=== PATIENT | female | born 2000 | race Caucasian/White ===

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

== ENCOUNTER 2024-12-08 06:06 | Observation (INO) | payer OTHER ==
[2024-12-08] VITALS (17 sets, daily range): BP systolic 102–128; BP diastolic 62–110
[~2024-12-08] VITALS: Ht 167.6 cm; Wt 79.4 kg
[2024-12-08] MEDS ORDERED: Pantoprazole Sodium 40 MG Injection IV ONE (07:00)
[2024-12-08 07:23] LABS: BASOPHILS ABSOLUTE AUTO 0.05 K/mm3 (0.00-0.23); BASOPHILS PERCENT AUTO 1 % (0-2); EOSINOPHILS ABSOLUTE AUTO 0.18 K/mm3 (0.00-0.68); EOSINOPHILS PERCENT AUTO 2 % (0-6); Hematocrit 41.7 % (33.0-51.0); Hemoglobin 13.7 g/dL (11.5-16.0); IMMATURE GRAN ABSOLUTE AUTO 0.04 K/mm3 (0.00-0.10); IMMATURE GRAN PERCENT AUTO 1 % (0-1); LYMPHOCYTES ABSOLUTE AUTO 2.08 K/mm3 (0.84-5.20); LYMPHOCYTES PERCENT AUTO 28 % (21-46); MONOCYTES ABSOLUTE AUTO 0.36 K/mm3 (0.16-1.47); MONOCYTES PERCENT AUTO 5 % (4-13); Mean Corpuscular HGB Conc 32.9 g/dL (31.5-36.5); Mean Corpuscular Volume 90 fL (80-100); NEUTROPHILS ABSOLUTE AUTO 4.69 K/mm3 (1.96-9.15); NEUTROPHILS PERCENT AUTO 63 % (41-73); NRBC ABSOLUTE 0.00 K/mm3 (0.00-0.02); NRBC Auto 0.0 /100 WBC (0.0-0.2); RDW Coefficient Variation 13.2 % (11.7-14.2); RDW Standard Deviation 43.4 fL (35.1-46.3)
[2024-12-08 07:36] LABS: Alanine Aminotransfer (ALT/SGP 288.0 U/L (12-78); Albumin, Blood 3.5 g/dL (3.4-5.0); Albumin/Globulin Ratio 0.8 (0.8-1.8); Anion Gap 10.0 mmol/L (3-11); Aspartate Aminotrans (AST/SGOT 74.0 U/L (12-37); Bilirubin, Total 0.2 mg/dL (0.1-1.0); Blood Urea Nitrogen 7.0 mg/dL (8-24); CO2, Blood 23.0 mmol/L (21-32); Calcium, Blood 8.5 mg/dL (8.5-10.1); Chloride, Blood 109.0 mmol/L (98-108); Creatinine, Blood 0.64 mg/dL (0.40-1.00); Globulin, Blood 4.5 g/dL (2.2-4.0); Glucose, Blood 82.0 mg/dL (70-99); Magnesium, Blood 1.9 mg/dL (1.6-2.4); Potassium, Blood 3.7 mmol/L (3.5-5.5); Sodium, Blood 138.0 mmol/L (136-145); Total Protein, Blood 8.0 g/dL (6.4-8.2)
[2024-12-08 07:59] LABS: Platelet Count 281 K/mm3 (150-400)
[2024-12-08 08:49] LABS: Source, Urine Clean Catch
[2024-12-08 08:55] LABS: Bilirubin, Urine Neg (Neg); Glucose Qualitative, Urine Neg (Neg); Ketones, Urine Neg (Neg); Leukocyte Esterase, Urine Neg (Neg); Protein, Urine Neg (Neg); Specific Gravity, Urine 1.010 (1.003-1.022); Urobilinogen, Urine NORM (Normal)
[2024-12-08] MEDS ORDERED: Lidocaine 2% Viscous Soln 15 ML UDC PO ONE (09:05)
[2024-12-08] MEDS ORDERED: Atropine/Scopalam/Hyoscam/PB 5 ML UDC PO ONE (09:05)
[2024-12-08 09:21] LABS: Color, Urine Yellow (P-Yellow)
[2024-12-08 09:23] LABS: Red Blood Cells, Urine Not Seen /hpf (0-2); White Blood Cells, Urine 0-2 /hpf (0-5)
[2024-12-08] MEDS ORDERED: FentaNYL Citrate 50 MCG/ML 2 ML Injection IV PRN ×3 (12:15→12:50)
[2024-12-08] MEDS ORDERED: HYDROcodone 5-APAP 325 TAB PO PRN (12:15)
[2024-12-08] MEDS ORDERED: Ondansetron HCl 2 MG / ML 2ML Vial IV PRN ×2 (12:15→12:45)
[2024-12-08] MEDS ORDERED: CeFAZolin Sodium 2,000 MG in NS 100 ML IV SCH (12:20)
[2024-12-08] MEDS ORDERED: FentaNYL Citrate 50 MCG/ML 2 ML Injection ONE (12:36)
[2024-12-08] MEDS ORDERED: HYDROmorphone HCl/Pf 1MG SYR IV PRN (12:45)
[2024-12-08] MEDS ORDERED: Albuterol 2.5 MG/3 ML VIAL INH PRN (12:50)
[2024-12-08] MEDS ORDERED: CeFAZolin Sodium 2,000 MG VIAL ONE (12:56)
--- NOTE | 2024-12-08 13:02 | NUR ---
History, Chart, Medications and Allergies reviewed before start of procedure.Patient confirms NPO status and agrees with scheduled surgery. Lungs clear T/O to Auscultation. Pre-Op teaching done. Pt verbalizes understanding.
[2024-12-08] MEDS ORDERED: Bupivacaine 0.5% HCl 5 MG/ML 30MLVIAL ONE (14:32)
[2024-12-08] MEDS ORDERED: Lidocaine HCl 4% 5 ML SDA ONE (14:59)
[2024-12-08] MEDS ORDERED: Midazolam HCl 1MG / ML 2ML Vial IV ONE (15:00)
--- NOTE | 2024-12-08 15:00 | NUR ---
PT HAS NOSE RING THAT CANNOT BE REMOVED. JEWELRY TAPED, WAIVER SIGNED, OR TEAM NOTIFIED. PT GLASSES TAKEN TO PACU FOR SAFEKEEPING.
[2024-12-08] MEDS ORDERED: Ketorolac Tromethamine 30mg Vial ONE (15:14)
[2024-12-08] MEDS ORDERED: Dexamethasone Sod Phos 10 MG/ML 1ML VIAL ONE (15:14)
[2024-12-08] MEDS ORDERED: Ondansetron HCl 2 MG / ML 2ML Vial ONE (15:14)
[2024-12-08] MEDS ORDERED: Rocuronium Bromide 10 MG/ML 5ML Injection IV ONE (15:14)
[2024-12-08] MEDS ORDERED: Sugammadex Sodium 200 MG/2ML SDV (100 MG/ML) ONE (15:15)
--- NOTE | 2024-12-08 18:34 | NUR ---
SHIFT SUMMARY PT ARRIVED RM 212 AT APPROXIMATELY 1725. PT DROWSY BUT AWAKE AND ORIENTED. PT RATED PAIN AT 8/10. SHE WAS ABLE TO EAT SOME APPLESAUCE AND TAKE A PAIN PILL. PT NOW REPORTS PAIN IS TOLERABLE. SHE IS ALERT AND ORIENTED, CONVERSING WITH STAFF AND HER PARENTS, SHE APPEARS IN GOOD SPIRITS.
[2024-12-08] MEDS ORDERED: SERT50 PO (18:51)
[2024-12-08] MEDS ORDERED: Adipex-P37.5 M1 PO (18:52)
[2024-12-08] MEDS ORDERED: NUVARING VAGIN1 EAC1 VAG (18:53)
--- NOTE | 2024-12-08 21:03 | NUR ---
DISCHARGE DISCHARGE INSTRUCTIONS PROVIDED TO THE PATIENT AND HER MOTHER. ALL QUESTIONS FROM BOTH PARTIES WERE ANSWERED, THEY REPORT NO FURTHER CONCERNS. IV REMOVED FROM R AC. PATIENT MEDICATED WITH PAIN MEDS PER REQUEST. THE PATIENT IS BEING WHEELED OUT VIA WHEEL CHAIR AND RN PSYCHIATRIC.
--- NOTE | 2024-12-08 21:21 | NUR ---
ASSESSMENT/DC *LATE ENTRY* AOX4. VSS. POD O-LAP SIL. DENIES N/V. TOLERATING MIN PO, CRACKERS, JELLO & WATER. REPORTS MILD PAIN TO ABD, STATES MORE LIKE "SORENESS FROM WORKING OUT." LAP SITES C/D/I W/STERI STRIPS OVER, SCANT SHADOWING NOTED. HAS VOIDED MULTx, CLEAR LIGHT YELLOW URINE NOTED. UP IND TO RESTROOM, DENIES DIZZINESS. PT WANTING TO DC HOME TONIGHT, FATHER REPORTED HE TOOK PERSCIPTION TO [facility] & THEY WILL PICK IT UP IN AM. PT STATES [facility] WILL MANAGE PAIN UNTIL AM. CHARGE NURSE MARC Méndez WENT OVER DC INSTRUCTIONS & ASSISTED W/DC.
== END 2024-12-08 21:00 | disposition home or self-care (01) ==
LOC: ER 06:06 → SURS 06:07
PROVIDERS: Student in an Organized Health Care Education/Training Program; ADMIT Surgery
PROC: 0FT44ZZ Resection of Gallbladder, Percutaneous Endoscopic Approach (ICD-10-PCS; principal; 2024-12-08 13:30)
DX: K80.12 Calculus of gallbladder with acute and chronic cholecystitis without obstruction (principal); K76.0 Fatty (change of) liver, not elsewhere classified
CPT/HCPCS: 76705; 80053; 81001; 83690; 83735; 84703; 85025; 96374; 99285-25; A9270; C1729; J0690; J1100; J1171; J1885; J2003; J2250; J2405; J2470; J2704; J3010; J7120